=== PATIENT | male | born 1960 ===

== ENCOUNTER → 2021-11-11 10:34 | Outpatient (CLI) | payer OTHER, MEDICAID, SELFPAY ==
[2021-11-11 21:10] LABS: COVID19 - ORCAS (NP or Nasal) POSITIVE (Negative)
== END ==
PROVIDERS: PCP Family Medicine; Visit Provider Physician Assistant Medical
DX: J06.9 Acute upper respiratory infection, unspecified (principal)
CPT/HCPCS: U0003